=== PATIENT | female | born 1950 | race Caucasian/White ===

== ENCOUNTER → 2017-02-08 | Outpatient (CLI) | payer BC, MEDICARE ==
--- NOTE | 2017-02-09 08:47 | MM ---
Reason for exam: screening (asymptomatic). Last mammogram was performed 1 year and 9 months ago. History: Patient is postmenopausal. Physical Findings: A clinical breast exam by your physician is recommended on an annual basis and results should be correlated with mammographic findings. MG 3D Screening Mammo W/Cad Bilateral CC and MLO view(s) were taken. Prior study comparison: April 29, 2015, bilateral MG screening mammo w CAD. January 31, 2013, [facility] DIGITAL RIGHT MAMMOGRAM w/CAD. There are scattered fibroglandular densities. There is no discrete abnormality. No significant changes when compared with prior studies. ASSESSMENT: Negative, BI-RAD 1 RECOMMENDATION: Routine screening mammogram of both breasts in 1 year.
== END | disposition home or self-care (01) ==
LOC: RADMAMWWP 13:42
PROVIDERS: ATTEND Family Medicine
DX: Z12.31 Encounter for screening mammogram for malignant neoplasm of breast (principal)
CPT/HCPCS: 77063; G0202

== ENCOUNTER → 2017-02-11 | Outpatient (CLI) | payer BC, MEDICARE ==
--- NOTE | 2017-02-11 15:41 | BD ---
EXAMINATION TYPE: MG DEXA axial skeleton. DATE OF EXAM: 02/11/2017 3:09 PM COMPARISON: NONE CLINICAL HISTORY: N95.1 MENOPAUSAL AND FEMALE CLIMACTERIC STATES Height: 67.5 Weight: 175 FRAX RISK QUESTIONS: Alcohol (3 or more units per day): NO Family History (Parent hip fracture): NO Glucocorticoids (More than 3mos): NO (Ex: prednisone, prednisolone, methylprednisolone, dexamethasone, and hydrocortisone). History of Fracture in Adulthood: NO Secondary Osteoporosis: NO 1. Type 1 Diabetes: NO 2. Hyperthyroidism: NO 3. Menopause before 45: NO 4. Malnutrition: NO 5. Chronic liver disease: NO Rheumatoid Arthritis: NO Current Tobacco Use: NO RISK FACTORS HISTORY OF: Family History of Osteoporosis: NONE KNOWN Drink Alcohol: SOCIAL Active: YES Diet low in dairy products/other sources of calcium: YES Postmenopausal woman: MID 40'S Lost more than 2 inches in height since high school: YES Adrenal Insufficiency: NO MEDICATIONS: Thyroid Medications: YES Which medication: SYNTHROID 75 MICROGRAMS How Lon+ YRS Additional Medications: VIT D, DAILY VITAMIN Additional History: NONE TO NOTE EXAM MEASUREMENTS: Bone mineral densitometry was performed using the [employer] System. Bone mineral density as measured about the Lumbar spine is: ----- L1-L4(G/cm2): 1.383 T Score Values are as follows: ----- L1: 0.7 ----- L2: 0.9 ----- L3: 2.7 ----- L4: 2.0 ----- L1-L4: 1.7 Bone mineral density BASELINE STUDY Bone mineral density about the R hip (g/cm2): 1.101 Bone mineral density about the L hip (g/cm2): 1.014 T Score values are as follows: -----R Neck: 0.4 -----L Neck: -0.2 -----R Intertrochanter: 1.0 -----L Intertrochanter: 1.2 Bone mineral density BASELINE STUDY TODAY FRAX %'S: 7.2% CHANCE OF A MAJOR OSTEOPOROTIC FX AND 0.3% FOR A HIP FX ....PROBABILITY OF FX IN 10 /YRS TIME IMPRESSION: Normal (Values between +1 and -1 indicate normal bone mass FOR BOTH STUDIES) NOTE: T-SCORE=SD OF THE YOUNG ADULT MEAN.
== END | disposition home or self-care (01) ==
LOC: RADBDWWP 14:41
PROVIDERS: ATTEND Family Medicine
DX: N95.1 Menopausal and female climacteric states (principal)
CPT/HCPCS: 77080

== ENCOUNTER 2017-02-12 09:47 | Emergency (ER) | payer MEDICARE ==
[2017-02-12 10:01] VITALS: BP 150/79; PULSE 73; RESP 16; TEMP 97.9
[2017-02-12] MEDS ORDERED: DIPH,PERTUS(ACELL)TETVAC-LF 0.5 ML VIAL IM ONE (10:20)
--- NOTE | 2017-02-12 10:23 | ED ---
Animal Bite HPI - General Chief Complaint: Animal Bite Stated Complaint: cat bite left hand Time Seen by Provider: 02/12/17 09:58 Source: patient Mode of arrival: ambulatory Limitations: no limitations - History of Present Illness Initial Comments: 66-year-old female patient presents to emergency department today for evaluation of the left hand redness and swelling after a cat bite on . Patient states that she did clean the area extensively at the time of the bite. She has been doing [place] soaks. She denies any streaking up her arm. Patient states that the cat is her pet and is up-to-date on its immunizations. Patient's last tetanus was in 2010. Patient denies any fever or chills. Denies any other symptoms. - Related Data Home Medications Medication Instructions Recorded Confirmed Levothyroxine Sodium [Synthroid] 75 mcg PO DAILY 08/23/15 02/12/17 Previous Rx's Medication Instructions Recorded Amoxicillin/Potassium Clav 1 tab PO Q12HR #20 tab 02/12/17 [Augmentin 875-125 Tablet] Ibuprofen [Motrin] 600 mg PO Q8HR PRN #30 tab 02/12/17 Allergies Allergy/AdvReac Type Severity Reaction Status Date / Time oxaprozin [From Daypro] Allergy Unknown Verified 02/12/17 10:01 tetracycline Allergy Unknown Verified 02/12/17 10:01 Review of Systems ROS Statement: Those systems with pertinent positive or pertinent negative responses have been documented in the HPI. ROS Other: All systems not noted in ROS Statement are negative. Constitutional: Denies: fever, chills, weakness Respiratory: Denies: cough, dyspnea, wheezes Cardiovascular: Denies: chest pain, palpitations, dyspnea on exertion Gastrointestinal: Denies: abdominal pain, nausea, vomiting, diarrhea, constipation Genitourinary: Denies: urgency, dysuria, frequency, hematuria Musculoskeletal: Denies: back pain Neurological: Denies: headache, weakness, numbness, paresthesias Psychiatric: Denies: anxiety, depression Past Medical History Past Medical History: Thyroid Disorder History of Any Multi-Drug Resistant Organisms: None Reported Past Surgical History: Cholecystectomy, Hysterectomy Past Psychological History: No Psychological Hx Reported Smoking Status: Never smoker Past Alcohol Use History: Occasional Past Drug Use History: None Reported General Exam Limitations: no limitations General appearance: alert, in no apparent distress Eye exam: Present: normal appearance, PERRL, EOMI. Absent: scleral icterus, conjunctival injection, periorbital swelling ENT exam: Present: normal exam, mucous membranes moist Respiratory exam: Present: normal lung sounds bilaterally. Absent: respiratory distress, wheezes, rales, rhonchi, stridor Cardiovascular Exam: Present: regular rate, normal rhythm, normal heart sounds. Absent: systolic murmur, diastolic murmur, rubs, gallop, clicks Extremities exam: Present: other (Left hand erythema, and edema over the dorsal surface, puncture wound) Neurological exam: Present: alert, oriented X3, CN II-XII intact Psychiatric exam: Present: normal affect, normal mood Skin exam: Present: warm, dry, intact, normal color. Absent: rash Course Vital Signs 02/12/17 09:58 Temperature 97.9 F Pulse Rate 73 Respiratory 16 Rate Blood Pressure 150/79 O2 Sat by Pulse 96 Oximetry Medical Decision Making - Medical Decision Making 66-year-old male patient presented for evaluation of cat bite to her left hand. She does exhibit swelling and erythema, puncture wound. No streaking up her left arm noted, no epitrochlear lymph nodes palpable, no axillary lymph nodes palpable. Tetanus will be updated here. She will Be started on Augmentin, and given Motrin for pain control. Patient started to return for any new, worsening , or concerning symptoms. Yesterday follow-up with her primary care physician for recheck. Patient verbalizes understanding and agrees this plan. Disposition Clinical Impression: Cat bite of left hand Disposition: HOME SELF-CARE Condition: Stable Instructions: Animal Bite (ED) Additional Instructions: Take Profen as needed for pain control. Complete antibiotic prescription and full. Return for any worsening redness, streaking up the arm, fever, or chills. Return for any other worsening, new, or concerning symptoms. Prescriptions: Amoxicillin/Potassium Clav [Augmentin 875-125 Tablet] 1 tab PO Q12HR #20 tab Ibuprofen [Motrin] 600 mg PO Q8HR PRN #30 tab PRN Reason: Pain Referrals: Oseas Andujar MD [Primary Care Provider] - 1-2 days Time of Disposition: 10:23
== END 2017-02-12 10:57 | disposition home or self-care (01) ==
LOC: EC 09:47
DX: S61.452A Open bite of left hand, initial encounter (principal); E07.9 Disorder of thyroid, unspecified; Z23 Encounter for immunization; Z79.899 Other long term (current) drug therapy; Z88.1 Allergy status to other antibiotic agents; Z88.8 Allergy status to other drugs, medicaments and biological substances; W55.01XA Bitten by cat, initial encounter
CPT/HCPCS: 90471; 90715; 99283

== ENCOUNTER → 2019-01-23 | Outpatient (CLI) | payer MEDICARE, OTHER ==
--- NOTE | 2019-01-23 15:20 | US ---
EXAMINATION TYPE: US carotid duplex BILAT DATE OF EXAM: 01/23/2019 COMPARISON: NONE CLINICAL HISTORY: ,I65.23Carotid Calcification. Calcification noted on dental x-ray EXAM MEASUREMENTS: RIGHT: Peak Systolic Velocity (PSV) cm/sec ----- Right CCA: 72.1 ----- Right ICA: 104 ----- Right ECA: 77.7 ICA/CCA ratio: 1.44 RIGHT: End Diastole cm/sec ----- Right CCA: 23.0 ----- Right ICA: 44.7 ----- Right ECA: 25.5 LEFT: Peak Systolic Velocity (PSV) cm/sec ----- Left CCA: 85.4 ----- Left ICA: 92.2 ----- Left ECA: 73.8 ICA/CCA ratio: 1.09 LEFT: End Diastole cm/sec ----- Left CCA: 35.4 ----- Left ICA: 41.7 ----- Left ECA: 73.8 VERTEBRALS (direction of flow): Right Vertebral: Antegrade Left Vertebral: Antegrade Rhythm: Normal IMPRESSION: Minimal plaque bilateral bifurcations. No evidence of significant stenosis Criteria for Assigning % of Stenosis / Diameter reduction (Estimation based on the indirect measurements of the internal carotid artery velocities (ICA PSV). 1. Normal (no stenosis)=ICA PSV < 125 cm/s: ratio < 2.0: ICA EDV<40 cm/s. 2. Less than 50% stenosis=ICA PSV < 125 cm/s: ratio < 2.0: ICA EDV<40 cm/s. 3. 50 to 69% stenosis=ICA PSV of 125 to 230 cm/s: ration 2.0 ? 4.0: ICA EDV 40-100 cm/s. 4. Greater than 70% stenosis to near occlusion= ICA PSV > 230 cm/s: ratio > 4.0: ICA EDV > 100 cm/s. 5. Near occlusion= ICA PSV velocities may be low or undetectable: variable ratio and ICA EDV. 6. Total occlusion=unable to detect flow.
--- NOTE | 2019-01-24 13:26 | MM ---
Reason for exam: screening (asymptomatic). Last mammogram was performed 1 year and 11 months ago. History: Patient is postmenopausal. Family history of breast cancer in daughter at age 50. Physical Findings: A clinical breast exam by your physician is recommended on an annual basis and results should be correlated with mammographic findings. MG 3D Screening Mammo W/Cad Bilateral CC and MLO view(s) were taken. Prior study comparison: February 08, 2017, bilateral MG 3d screening mammo w/cad. April 29, 2015, bilateral MG screening mammo w CAD. There are scattered fibroglandular densities. There is a right upper outer quadrant mass measuring 7mm, 5-6cm from nipple. No suspicious abnormality on the left. ASSESSMENT: Incomplete: need additional imaging evaluation, BI-RAD 0 RECOMMENDATION: Special view mammogram of the right breast. If lesion persists on supplemental views, image directed ultrasound is recommended. [facility] will attempt to contact patient to return for supplemental views and ultrasound if indicated.
== END | disposition home or self-care (01) ==
LOC: RADMAMWWP 13:10
PROVIDERS: ATTEND Family Medicine
DX: Z12.31 Encounter for screening mammogram for malignant neoplasm of breast (principal); I65.23 Occlusion and stenosis of bilateral carotid arteries
CPT/HCPCS: 77063; 77067; 93880

== ENCOUNTER → 2020-06-11 | Outpatient (CLI) | payer MEDICARE, OTHER ==
--- NOTE | 2020-06-11 20:12 | MR ---
MR right ankle HISTORY: Posterior tibial tendon dysfunction, rupture Multiplanar multisequence imaging obtained through the right ankle The posterior tibialis tendon shows abnormal thickening and abnormal intrinsic signal. There is some local edema change within the soft tissues and about the ankle. Bone marrow signal is remarkable for some subchondral edema present at the intertarsal joint at the navicular cuboid junction, some minima l subchondral geode formation and reactive marrow signal changes also present at the tarsometatarsal joint of the third digit, there is marginal spurring. Some fluid signal is present at the volar surfa ce of the talonavicular joint. Some probable reactive marrow signal change present at the level of th e. The Achilles tendon, plantar aponeurosis are intact. At the level of the sinus Tarsi there is a sm all amount of reactive marrow signal change present within the talus, there may be biomechanical stre ss changes. Peroneal longus and brevis tendons, extensor tendons are intact. There is an ankle joint effusion present. No definite ligament disruption. IMPRESSION: Findings compatible with partial tear of the posterior tibial tendon. There are some oste oarthritic changes present. Additional findings above.
== END | disposition home or self-care (01) ==
LOC: RADMRIMAIN 13:17
PROVIDERS: ATTEND Orthopaedic Surgery Foot and Ankle Surgery
DX: M19.071 Primary osteoarthritis, right ankle and foot (principal)

== ENCOUNTER → 2022-05-12 | Outpatient (CLI) | payer MEDICARE, OTHER ==
--- NOTE | 2022-05-13 08:18 | MM ---
Reason for Exam: Screening (asymptomatic). Last mammogram was performed 3 year(s) and 3 month(s) ago. Patient History: Menarche at age 12. First Full-Term at age 18. Right ovary removed at age 37. Hysterectomy at age 37. Postmenopausal. Daughter had breast cancer, age 50. Risk Values: Ning 5 year model risk: 3.3%. NCI Lifetime model risk: 8.4%. Prior Study Comparison: 02/08/2017 Bilateral Screening Mammogram, [facility]. 01/23/2019 Bilateral Screening Mammogram, [facility]. 02/05/2019 Right Diagnostic Mammogram, [facility]. Tissue Density: The breast tissue is heterogeneously dense. This may lower the sensitivity of mammography. Findings: Analyzed By CAD. There is no suspicious group of microcalcifications or new suspicious mass in either breast. Overall Assessment: Negative, BI-RAD 1 Management: Screening Mammogram of both breasts in 1 year. A clinical breast exam by your physician is recommended on an annual basis and results should be correlated with mammographic findings. Electronically signed and approved by: Tien Richardson M.D. Radiologis
== END | disposition home or self-care (01) ==
LOC: RADMAMWWP 10:17
PROVIDERS: ATTEND Family Medicine
DX: Z12.31 Encounter for screening mammogram for malignant neoplasm of breast (principal)
CPT/HCPCS: 77063; 77067

== ENCOUNTER → 2023-04-04 | Outpatient (CLI) | payer MEDICARE ==
--- NOTE | 2023-04-04 18:07 | MR ---
EXAMINATION TYPE: MR wrist RT wo con DATE OF EXAM: 04/04/2023 COMPARISON: No radiographic correlation available. HISTORY: 72-year-old female M67.431, M25.531, M65.341, right wrist pain, history of fall and injury t o wrist. TECHNIQUE: Multiplanar, multisequence images of the right wrist were obtained without IV contrast. FINDINGS: There is moderate osteophytic change at the first CMC joint as well as the triscaphe joint with loss of articular cartilage, marginal spurring, and reactive subchondral marrow signal change. Additional scattered mild osteoarthritic change throughout the mid carpal compartment. Degenerative c hange at the pisiform triquetral joint with a small effusion. There is cartilage thinning and some reactive subchondral marrow signal change along the ulnar proxim al aspect of the lunate bone. There is a corresponding defect within the central portion of the TFC. Moderate effusion in the dista l radioulnar joint along with a 6 x 6 x 3 mm loose body in the prestyloid recess. The scapholunate ligament is intact. The dorsal extensor or flexor tendons of the wrist appear normal. No suspicious bone marrow replacement. No acute or healing fracture. IMPRESSION: 1. 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 Additional scattered mild osteoar thritic change throughout the mid carpal compartment. 2. Correlate for symptoms of ulnar impaction syndrome. There is some degenerative change focally tamara g the ulnar proximal aspect of the lunate bone and a large through thickness tear of the central port ion of the TFC. 3. A 6 x 3 mm loose body within the prestyloid recess.
== END | disposition home or self-care (01) ==
LOC: RADMRIMAIN 14:18
PROVIDERS: ATTEND Orthopaedic Surgery
DX: M19.041 Primary osteoarthritis, right hand (principal); M67.431 Ganglion, right wrist; M65.341 Trigger finger, right ring finger; M24.08 Loose body, other site

== ENCOUNTER → 2024-07-10 | Outpatient (CLI) | payer MEDICARE ==
--- NOTE | 2024-07-18 12:35 | MM ---
Reason for Exam: Screening (asymptomatic). Last mammogram was performed 2 year(s) and 2 month(s) ago. Patient History: Menarche at age 12. First Full-Term at age 18. Right ovary removed at age 37. Hysterectomy at age 37. Postmenopausal. Daughter had breast cancer, age 50. Risk Values: Ning 5 year model risk: 3.3%. NCI Lifetime model risk: 7.5%. Prior Study Comparison: 01/23/2019 Bilateral Screening Mammogram, [facility]. 02/05/2019 Right Diagnostic Mammogram, [facility]. 05/12/2022 Bilateral MG 3D screening mammo w/cad, [facility]. Tissue Density: There are scattered areas of fibroglandular density. Findings: Analyzed By CAD. Right breast: There is no suspicious group of microcalcifications or new suspicious mass. Left breast: There is no suspicious group of microcalcifications or new suspicious mass. Overall Assessment: Negative, BI-RAD 1 Management: Screening Mammogram of both breasts in [address] [facility] will attempt to contact patient to return for supplemental views and ultrasound if indicated. Patient should continue monthly self-breast exams. A clinical breast exam by your physician is recommended on an annual basis. This exam should not preclude additional follow-up of suspicious palpable abnormalities. Note on Ning scores and lifetime risk: 1. A Ning score greater than 3% is considered moderate risk. If this is the case, consider specialist referral to assess eligibility for a risk reducing agent. 2. If overall lifetime risk for the development of breast cancer is 20% or higher, the patient may qualify for future screening with alternating mammogram and breast MRI. Electronically signed and approved by: Alvin Albarado DO
== END | disposition home or self-care (01) ==
LOC: RADMAMWWP 12:49
PROVIDERS: ATTEND Family Medicine
DX: Z12.31 Encounter for screening mammogram for malignant neoplasm of breast
CPT/HCPCS: 77063; 77067